=== PATIENT | female | born 1930 | race Caucasian/White ===

== ENCOUNTER → 2017-02-07 | Outpatient (CLI) | payer BC ==
[~2017-02-07] MED LIST: CARDIZEM120 MG PO; CELECOXIB200 MG PO; CYANOCOBALAM1000 MCG PO; ERGOCALCIF50000 UNIT PO; HYDROCHLOROTHIA25 MG PO; HYDROCODON-ACE1 EAC7 PO; IRON325 M1 PO; KLONOPIN0.5 M1 PO; LAMISIL250 MG PO; LIDOCAINE700 MG TD; LIPITOR10 MG PO; LOTENSIN40 MG PO; MIRALAX17 GM PO; NEURONTIN300 MG PO; POTASSIUM CHLO10 MEQ PO; PROTONIX40 MG PO; SENNA PLUS TAB1 EACH PO; TYLENOL ARTHRI650 MG PO; TYLENOL REGULA325 MG PO; ULTRAM50 MG PO; XARELTO10 MG PO
== END | disposition home or self-care (01) ==
LOC: CDC 10:15
DX: R94.31 Abnormal electrocardiogram [ECG] [EKG] (principal)
CPT/HCPCS: 93000

== ENCOUNTER 2017-02-14 09:34 | Inpatient (IN) | payer BC ==
[~2017-02-14] VITALS: Ht 167.6 cm; Wt 69.6 kg
[~2017-02-14 09:34] MED LIST changes: -CELECOXIB200 MG PO; -HYDROCODON-ACE1 EAC7 PO; -LIDOCAINE700 MG TD; -SENNA PLUS TAB1 EACH PO; -TYLENOL REGULA325 MG PO; -XARELTO10 MG PO
[2017-02-14 10:14] VITALS: BP 147/66
[2017-02-14 15:01] LABS: HEMATOCRIT 34.7 % (36.0-46.0); MCV 87.4 FL (83-99)
[2017-02-14 15:26] VITALS: BP 142/69
[2017-02-14 19:43] VITALS: BP 155/69
[2017-02-14 23:59] VITALS: BP 184/83
[2017-02-15 00:07] VITALS: BP 154/74
[2017-02-15 03:30] VITALS: BP 131/60
[2017-02-15 08:05] VITALS: BP 114/56
[2017-02-15 14:36] LABS: HEMATOCRIT 34.2 % (36.0-46.0); MCV 87.5 FL (83-99)
[2017-02-15 16:31] VITALS: BP 117/62
[2017-02-15 23:52] VITALS: BP 146/65
[2017-02-16 06:17] LABS: HEMATOCRIT 30.9 % (36.0-46.0); MCV 86.8 FL (83-99)
[2017-02-16 07:47] VITALS: BP 116/55
[2017-02-16 23:46] VITALS: BP 165/79
[2017-02-17 07:52] VITALS: BP 115/55
[2017-02-17] MEDS ORDERED: TYLENOL REGULA325 MG PO (09:25)
[2017-02-17] MEDS ORDERED: SENNA PLUS TAB1 EACH PO (09:27)
[2017-02-17] MEDS ORDERED: CELECOXIB200 MG PO (09:27)
[2017-02-17] MEDS ORDERED: XARELTO10 MG PO (09:27)
[2017-02-17] MEDS ORDERED: HYDROCODON-ACE1 EAC7 PO (09:27)
[2017-02-17] MEDS ORDERED: LIDOCAINE700 MG TD (09:27)
== END 2017-02-17 11:15 | disposition home or self-care (01) | DRG 470 ==
LOC: 3EAST 09:34 → 2SOUTH 09:34 → 3EAST 15:53
PROVIDERS: Orthopaedic Surgery
PROC: 0SR904A Replacement of Right Hip Joint with Ceramic on Polyethylene Synthetic Substitute, Uncemented, Open Approach (ICD-10-PCS; principal; 2017-02-14)
DX: M16.11 Unilateral primary osteoarthritis, right hip (principal); I10 Essential (primary) hypertension
CPT/HCPCS: 85014; 85018; J0131; J1170; J7050